=== PATIENT | female | born 1935 | race Caucasian/White ===

== ENCOUNTER 2020-09-26 16:05 | Inpatient (IN) | payer MEDICARE, OTHER ==
[2020-09-26] MEDS ORDERED: Polyethylene Glycol 3350 Powder 17 GM Packet PO PRN (16:21)
[2020-09-26] MEDS ORDERED: Ondansetron 4 MG Tab.DIS PO PRN (16:21)
--- NOTE | 2020-09-26 16:26 | PCM.HP.2 ---
H&P History of Present Illness - General Date of Service: 09/26/20 Admit Problem/Dx: Admission Diagnosis/Problem Admission Diagnosis/Problem Palliative care Source of Information: Old Records, Provider, RN Notes Reviewed. No: Patient History Limitations: Reports: Other (Confused and agitated) - History of Present Illness Initial Comments - Free Text/Narative: Ms. Lowe is an 85-year-old woman who was admitted to swing bed status on transfer from [facility] in [facility]. She has been hospitalized there over the past week and a half with hypoxia secondary to Covid and bilateral pneumonia, acute kidney injury, right femur fracture, and T12 fracture. Acute kidney injury has resolved and she is over most of her Covid infection. During the course of hospitalization she became more confused and agitated, not cooperating with cares including refusing to eat. Patient's family has requested comfort cares only and she is transferred to our facility to swing bed status for palliative care. Because of her confusion and agitation she is unable to provide meaningful history concerning her recent symptoms or review of systems. - Related Data Allergies/Adverse Reactions: Allergies Allergy/AdvReac Type Severity Reaction Status Date / Time Sulfa (Sulfonamide Allergy Hives Verified 05/08/14 12:33 Antibiotics) etodolac [From Lodine] AdvReac Diarrhea Verified 09/26/20 17:11 indomethacin AdvReac Nausea and Verified 09/26/20 17:11 Vomiting tramadol AdvReac Nausea and Verified 09/26/20 17:11 Vomiting Home Medications: Home Meds Aspirin 81 mg PO DAILY 05/08/14 [History] Ibuprofen [Wal-Profen] 200 mg PO BEDTIME 05/08/14 [History] Lisinopril/Hydrochlorothiazide [Lisinopril-Hctz 20-12.5 mg Tab] 1 each PO DAILY 05/08/14 [History] H&P Review of Systems - Review of Systems: Review Of Systems: See Below General: Reports: ROS unobtainable (Secondary to confusion and agitation) Exam - Exam Exam: See Below - Exam General: Lethargic. No: Cooperative HEENT: Conjunctiva Clear, Mucosa Moist & [place], Normal Nasal Septum, Posterior Pharynx Clear, Pupils Equal Neck: Supple, Trachea Midline, +2 Carotid Pulse wo Bruit Lungs: Clear to Auscultation, Normal Respiratory Effort Cardiovascular: Regular Rate, Regular Rhythm, Normal S1, Normal S2. No: Systolic Murmur, Diastolic Murmur GI/Abdominal Exam: Soft, Non-Tender, No Organomegaly, No Distention Extremities: Non-Tender, No Pedal Edema, Other (Right lower extremity is in a brace) Skin: Warm, Dry Psychiatric: Agitated *Q Meaningful Use (ADM) - VTE *Q VTE Anticoagulation Contraindications: Med/TX Not Indicated/Need - VTE Risk Assess *Q Each Risk Factor Represents 1 Point: None Total Score 1 Point Risk Factors: 0 Each Risk Factor Represents 2 Points: None Total Score 2 Point Risk Factors: 0 Each Risk Factor Represents 3 Points: Age 75 Years or Greater Total Score 3 Point Risk Factors: 3 Each Risk Factor Represents 5 Points: Hip, Pelvis or Leg Fracture, Less than 1 month Total Score 5 Point Risk Factors: 5 Venous Thromboembolism Risk Factor Score *Q: 8 Problem List Initiated/Reviewed/Updated: Yes Orders Last 24hrs: Active Orders 24 hr Category Date Time Status Patient Status [ADT] Routine ADT 09/26/20 16:21 Active Notify Provider Vital Signs [RC] ASDIRECTED Care 09/26/20 16:21 Active Oxygen Therapy [RC] PRN Care 09/26/20 16:21 Active Up With Assistance [RC] ASDIRECTED Care 09/26/20 16:21 Active Up to Chair [RC] QID Care 09/26/20 16:21 Active VTE/DVT Education [RC] Per Unit Routine Care 09/26/20 16:21 Active Vital Signs [RC] Q4H Care 09/26/20 16:21 Active Regular Diet [DIET] Diet 09/26/20 Lunch Active Acetaminophen [TylenoL] Med 09/26/20 16:21 Active 650 mg PO Q4H PRN LORazepam [Ativan ORAL Concentrate 1MG/0.5 ML U/D] Med 09/26/20 16:24 Ordered 0.5 mg PO Q2H PRN Morphine [Morphine 10 MG/0.5 ML Oral Syringe] Med 09/26/20 16:24 Ordered 5 mg PO Q1H PRN Ondansetron [Zofran ODT] Med 09/26/20 16:21 Ordered 4 mg PO Q6H PRN polyethylene glycoL 3350 [MiraLAX] Med 09/26/20 16:21 Ordered 17 gm PO DAILY PRN Resuscitation Status Routine Resus Stat 09/26/20 16:21 Ordered Medication Orders Acetaminophen (Tylenol) 650 mg PO Q4H PRN PRN Reason: Pain (Mild 1-3)/fever Lorazepam (Ativan Oral Concentrate 1mg/0.5 Ml U/D) 0.5 mg PO Q2H PRN PRN Reason: Anxiety Morphine Sulfate (Morphine 10 Mg/0.5 Ml Oral Syringe) 5 mg PO Q1H PRN PRN Reason: Pain Ondansetron HCl (Zofran Odt) 4 mg PO Q6H PRN PRN Reason: Nausea able to take PO Polyethylene Glycol (Miralax) 17 gm PO DAILY PRN PRN Reason: Constipation Assessment/Plan Comment:: ASSESSMENT AND PLAN PALLIATIVE CARE-patient has shown significant deterioration with recent Covid infection and femur fracture. Family does not want further aggressive intervention or cares and has requested comfort cares only. -Consider hospice admission -Morphine and or lorazepam as needed for comfort -No further aggressive interventions or evaluation RECENT COVID INFECTION WITH BILATERAL PNEUMONIA AND HYPOXIA-respiratory status stable ACUTE KIDNEY INJURY-resolved CONFUSION AND AGITATION-history of underlying dementia FEMUR FRACTURE -Continue use of current brace -Pain medication as needed - Mortality Measure Prognosis:: Poor
[2020-09-26] MEDS: LORazepam ORAL Concentrate 1MG/0.5ML U/D PO PRN ×3 (17:16→22:44)
[2020-09-26] MEDS: Acetaminophen 325 MG Tab PO PRN ×2 (17:21→22:40)
[2020-09-26] MEDS: Morphine 10 MG/0.5 ML Oral Syringe PO PRN (20:54)
[2020-09-27] MEDS: LORazepam ORAL Concentrate 1MG/0.5ML U/D PO PRN ×5 (01:10→22:37)
[2020-09-27] MEDS: Morphine 10 MG/0.5 ML Oral Syringe PO PRN ×5 (07:53→19:44)
[2020-09-27] MEDS: Acetaminophen 325 MG Tab PO PRN (09:53)
[2020-09-27] MEDS ORDERED: Haloperidol Lactate 5 MG/ML SDV IM ONE (11:30)
[2020-09-27] MEDS ORDERED: Haloperidol Lactate 2 MG/ML Oral Soln 15 ML Bottle PO PRN (12:20)
[2020-09-27] MEDS: fentaNYL 12 MCG/HR Transdermal Patch TRDERM SCH (13:05)
[2020-09-27] MEDS: Divalproex Sodium Delayed-Release 125 MG Cap.Sprink PO SCH (16:59)
[2020-09-27] MEDS: Melatonin 3 MG Tab PO SCH (20:00)
[2020-09-27] MEDS: FENTANYL PATCH CHECK TOP SCH (20:01)
[2020-09-28] MEDS: LORazepam ORAL Concentrate 1MG/0.5ML U/D PO PRN ×3 (01:20→13:00)
[2020-09-28] MEDS: Morphine 10 MG/0.5 ML Oral Syringe PO PRN ×5 (01:47→23:36)
[2020-09-28] MEDS: Divalproex Sodium Delayed-Release 125 MG Cap.Sprink PO SCH ×2 (08:27→16:20)
[2020-09-28] MEDS: FENTANYL PATCH CHECK TOP SCH ×2 (08:27→23:13)
[2020-09-28] MEDS: Melatonin 3 MG Tab PO SCH (23:13)
[2020-09-29] MEDS: LORazepam ORAL Concentrate 1MG/0.5ML U/D PO PRN ×3 (02:54→18:09)
[2020-09-29] MEDS: Morphine 10 MG/0.5 ML Oral Syringe PO PRN ×4 (02:55→18:09)
[2020-09-29] MEDS: FENTANYL PATCH CHECK TOP SCH ×2 (11:06→22:01)
[2020-09-29] MEDS: Divalproex Sodium Delayed-Release 125 MG Cap.Sprink PO SCH (11:06)
[2020-09-30] MEDS: Morphine 10 MG/0.5 ML Oral Syringe PO PRN ×9 (00:32→22:12)
[2020-09-30] MEDS: LORazepam ORAL Concentrate 1MG/0.5ML U/D PO PRN ×6 (04:47→22:12)
[2020-09-30] MEDS: FENTANYL PATCH CHECK TOP SCH ×2 (10:03→22:23)
[2020-09-30] MEDS: fentaNYL 12 MCG/HR Transdermal Patch TRDERM SCH (15:28)
[2020-10-01] MEDS: Morphine 10 MG/0.5 ML Oral Syringe PO PRN ×4 (02:17→23:16)
[2020-10-01] MEDS: LORazepam ORAL Concentrate 1MG/0.5ML U/D PO PRN ×5 (02:18→22:28)
[2020-10-01] MEDS: FENTANYL PATCH CHECK TOP SCH ×2 (09:27→22:29)
--- NOTE | 2020-10-01 13:33 | PCM.PN ---
- General Info Date of Service: 10/01/20 Subjective Update: No acute events since admission. She remains lethargic and has not been interactive. She has not been out of bed. She has not had a wet brief in 24 hours. Blood pressure has been normal. She has not had any hypoxia. Functional Status: Reports: Other (obtunded ) - Patient Data Vitals - Most Recent: Last Vital Signs Temp 36.4 C 10/01/20 07:00 Pulse 98 10/01/20 07:00 Resp 15 10/01/20 07:00 BP 130/67 10/01/20 07:00 Pulse Ox 93 L 10/01/20 07:00 Weight - Most Recent: 58.6 kg I&O - Last 24 Hours: Intake & Output 09/30/20 10/01/20 10/01/20 22:59 06:59 14:59 Intake Total 0 Balance 0 Med Orders - Current: Current Medications Acetaminophen (Tylenol) 650 mg PO Q4H PRN PRN Reason: Pain (Mild 1-3)/fever Last Admin: 09/27/20 09:53 Dose: 650 mg Documented by: Fentanyl (Duragesic) 12 mcg TRDERM Q72H [facility] Last Admin: 09/30/20 15:28 Dose: 12 mcg Documented by: Haloperidol Lactate (Haldol 2 Mg/Ml Soln) 1 mg PO Q2H PRN PRN Reason: Agitation Lorazepam (Ativan Oral Concentrate 1mg/0.5 Ml U/D) 0.5 mg PO Q2H PRN PRN Reason: Anxiety Last Admin: 10/01/20 12:47 Dose: 0.5 mg Documented by: Morphine Sulfate (Morphine 10 Mg/0.5 Ml Oral Syringe) 5 mg PO Q1H PRN PRN Reason: Pain Last Admin: 10/01/20 05:50 Dose: 5 mg Documented by: Fentanyl Patch Check 0 each TOP BID [facility] Last Admin: 10/01/20 09:27 Dose: Not Given Documented by: Ondansetron HCl (Zofran Odt) 4 mg PO Q6H PRN PRN Reason: Nausea able to take PO Polyethylene Glycol (Miralax) 17 gm PO DAILY PRN PRN Reason: Constipation Discontinued Medications Divalproex Sodium (Depakote Sprinkle) 125 mg PO BIDMEALS [facility] Last Admin: 09/29/20 11:06 Dose: Not Given Documented by: Haloperidol Lactate (Haldol) 2 mg IM ONETIME ONE Stop: 09/27/20 11:31 Last Admin: 09/27/20 11:15 Dose: 2 mg Documented by: Melatonin (Melatonin) 9 mg PO BEDTIME [facility] Last Admin: 09/28/20 23:13 Dose: Not Given Documented by: - Exam Quality Assessment: No: Supplemental Oxygen General: No Acute Distress, Obtunded. No: Alert Lungs: Normal Respiratory Effort. No: Wheezing Cardiovascular: Regular Rhythm, Tachycardia GI/Abdominal Exam: Soft, No Distention Extremities: No Pedal Edema. No: Increased Warmth Skin: Warm, Dry Psy/Mental Status: No: Alert, Agitated Sepsis Event Note - Evaluation Sepsis Screening Result: No Definite Risk - Focused Exam Vital Signs: Vital Signs Temp Pulse Resp BP Pulse Ox 10/01/20 07:00 36.4 C 98 15 130/67 93 L - Problem List Review Problem List Initiated/Reviewed/Updated: Yes - Plan Plan:: ASSESSMENT AND PLAN PALLIATIVE CARE-patient has shown significant deterioration with recent Covid infection and femur fracture. Family does not want further aggressive intervention or cares and has requested comfort cares only. No significant issues since admission. -Consider transition to hospice after the hospital stay -Morphine and or lorazepam as needed for comfort -No further aggressive interventions or evaluation RECENT COVID INFECTION WITH BILATERAL PNEUMONIA AND HYPOXIA-respiratory status stable ACUTE KIDNEY INJURY-resolved CONFUSION AND AGITATION-history of underlying dementia FEMUR FRACTURE -Continue use of current brace -Pain medication as needed Disposition-anticipate discharge to the custodial for additional comfort care tomorrow Lon Pathak MD
[2020-10-02] MEDS: Morphine 10 MG/0.5 ML Oral Syringe PO PRN ×3 (08:23→13:27)
[2020-10-02] MEDS: FENTANYL PATCH CHECK TOP SCH (08:23)
[2020-10-02] MEDS: LORazepam ORAL Concentrate 1MG/0.5ML U/D PO PRN ×2 (09:16→14:34)
--- NOTE | 2020-10-02 10:15 | PCM.DCSUM1 ---
Discharge Summary - Hospital Course Brief History: 85-year-old female who was admitted to swing bed status after a recent hospitalization for COVID-19 pneumonia with acute respiratory failure, femur fracture, T12 compression fracture, acute kidney injury and agitation and anorexia. Diagnosis: Stroke: No - Discharge Data Discharge Date: 10/02/20 Discharge Disposition: DC/Tfer to SNF 03 Condition: Poor - Referral to Home Health Primary Care Physician: Santosh Gamez MD - Discharge Diagnosis/Problem(s) (1) COVID-19 SNOMED Code(s): 717207396 ICD Code: U07.1 - COVID-19 Status: Acute Current Visit: Yes (2) Pneumonia due to COVID-19 virus SNOMED Code(s): 953560583575156422 ICD Code: U07.1 - COVID-19; J12.89 - OTHER VIRAL PNEUMONIA Status: Acute Current Visit: Yes - Patient Summary/Data Hospital Course: Yanna was admitted to swing bed status with comfort cares after a hospital stay at [facility] in [place]. She had been treated for COVID-19 infection with bilateral pneumonia and hypoxic respiratory failure as well as acute kidney injury, nonoperative hip fracture, compression fracture at T12 as well as agitation and anorexia. Patient was transitioned to comfort cares. Unfortunately there were no jail beds available so she was admitted to swing bed status until she could be transferred to a jail. There were no significant issues during the course of the hospital stay. She has rested comfortably. She has not had any significant agitation. She has not appeared to be in pain. She has not had anything to eat or drink. She is making only very small quantities of urine at this time. Vital signs have surprisingly remained stable. The plan is for discharge to the jail for comfort cares. - Patient Instructions Diet: Pureed Activity: As Tolerated Other/Special Instructions: Comfort care only. DNR/DNI with comfort measures - Discharge Plan *PRESCRIPTION DRUG MONITORING PROGRAM REVIEWED*: Not Applicable *COPY OF PRESCRIPTION DRUG MONITORING REPORT IN PATIENT CHERYL: Not Applicable Prescriptions/Med Rec: LORazepam [Ativan ORAL Concentrate 1MG/0.5 ML U/D] 0.5 mg PO Q2H PRN #30 ml PRN Reason: Anxiety fentaNYL [Duragesic] 12 mcg TRDERM Q72H #10 patch Morphine [Morphine 10 MG/0.5 ML Oral Syringe] 5 mg PO Q1H PRN #60 ml PRN Reason: Pain/Air Hunger Acetaminophen [Tylenol] 650 mg RECTAL Q4H PRN #100 tablet PRN Reason: Pain (Mild 1-3)/fever Home Medications: Home Meds Acetaminophen [Tylenol] 650 mg RECTAL Q4H PRN #100 tablet 10/02/20 [Rx] LORazepam [Ativan ORAL Concentrate 1MG/0.5 ML U/D] 0.5 mg PO Q2H PRN #30 ml 10/02/20 [Rx] Morphine [Morphine 10 MG/0.5 ML Oral Syringe] 5 mg PO Q1H PRN #60 ml 10/02/20 [Rx] fentaNYL [Duragesic] 12 mcg TRDERM Q72H #10 patch 10/02/20 [Rx] Oxygen Therapy Mode: Room Air Patient Handouts: COVID-19 - Discharge Summary/Plan Comment DC Time >30 min.: No - Patient Data Vitals - Most Recent: Last Vital Signs Temp 35.5 C L 10/02/20 08:20 Pulse 117 H 10/02/20 08:20 Resp 16 10/02/20 08:20 BP 164/80 H 10/02/20 08:20 Pulse Ox 91 L 10/02/20 08:20 Weight - Most Recent: 58.6 kg I&O - Last 24 hours: Intake & Output 10/01/20 10/02/20 10/02/20 22:59 06:59 14:59 Intake Total 80 Balance 80 Med Orders - Current: Current Medications Acetaminophen (Tylenol) 650 mg PO Q4H PRN PRN Reason: Pain (Mild 1-3)/fever Last Admin: 09/27/20 09:53 Dose: 650 mg Documented by: Fentanyl (Duragesic) 12 mcg TRDERM Q72H [facility] Last Admin: 09/30/20 15:28 Dose: 12 mcg Documented by: Haloperidol Lactate (Haldol 2 Mg/Ml Soln) 1 mg PO Q2H PRN PRN Reason: Agitation Lorazepam (Ativan Oral Concentrate 1mg/0.5 Ml U/D) 0.5 mg PO Q2H PRN PRN Reason: Anxiety Last Admin: 10/02/20 09:16 Dose: 0.5 mg Documented by: Morphine Sulfate (Morphine 10 Mg/0.5 Ml Oral Syringe) 5 mg PO Q1H PRN PRN Reason: Pain Last Admin: 10/02/20 08:23 Dose: 5 mg Documented by: Fentanyl Patch Check 0 each TOP BID REPLACED BY [facility] Last Admin: 10/02/20 08:23 Dose: Not Given Documented by: Ondansetron HCl (Zofran Odt) 4 mg PO Q6H PRN PRN Reason: Nausea able to take PO Polyethylene Glycol (Miralax) 17 gm PO DAILY PRN PRN Reason: Constipation Discontinued Medications Divalproex Sodium (Depakote Sprinkle) 125 mg PO BIDMEALS REPLACED BY [facility] Last Admin: 09/29/20 11:06 Dose: Not Given Documented by: Haloperidol Lactate (Haldol) 2 mg IM ONETIME ONE Stop: 09/27/20 11:31 Last Admin: 09/27/20 11:15 Dose: 2 mg Documented by: Melatonin (Melatonin) 9 mg PO BEDTIME REPLACED BY [facility] Last Admin: 09/28/20 23:13 Dose: Not Given Documented by: *Q Meaningful Use (DIS) - VTE *Q VTE Anticoagulation Contraindications: Med/TX Not Indicated/Need
== END 2020-10-02 15:00 | DRG 951 ==
LOC: JP.2SS 16:05 → UNDOADMIN 16:05
PROVIDERS: ADMIT Hospitalist; ATTEND Internal Medicine
DX: Z51.5 Encounter for palliative care (principal); J12.89 Other viral pneumonia; Z66 Do not resuscitate; F03.90 Unspecified dementia, unspecified severity, without behavioral disturbance, psychotic disturbance, mood disturbance, and anxiety; R63.0 Anorexia; X58.XXXD Exposure to other specified factors, subsequent encounter; R45.1 Restlessness and agitation; Z88.1 Allergy status to other antibiotic agents; Z79.899 Other long term (current) drug therapy; S72.91XD Unspecified fracture of right femur, subsequent encounter for closed fracture with routine healing; S22.089D Unspecified fracture of T11-T12 vertebra, subsequent encounter for fracture with routine healing; Z88.2 Allergy status to sulfonamides; Z88.6 Allergy status to analgesic agent; Z88.5 Allergy status to narcotic agent; Z79.82 Long term (current) use of aspirin; Z86.19 Personal history of other infectious and parasitic diseases
CPT/HCPCS: A9270-GY; J1630